=== PATIENT | female | born 1960 | race Asian ===

== ENCOUNTER → 2021-12-03 13:28 | Outpatient (CLI) | payer OTHER, MEDICAID, SELFPAY ==
--- NOTE | 2021-12-03 | DI.ECHO.S_ITS ---
[place] [facility] +---------+ [facility] +---------+ : : [address] [place] : : : : [id number] : : : : Phone: [phone] +---------+ Echocardiogram Report + + :Name: OPAL AREVALO Study Date: 12/03/2021 Height: 58 in : :[facility] ReadingLocation: Weight: 138 lb : : Gender: Female BSA: 1.6 m2 : :: 1960 Age: 61 yrs BP: 166/87 mmHg: :Reason For Study: Murmur : :Ordering Physician: VIVIAN, : :OVIDIO Performed By: Daron Hodgson : :Referring: OVIDIO PARK : + + Interpretation Summary The ejection fraction is estimated to be 60-65%. There is no significant valvular heart disease. Procedure: A two-dimensional transthoracic echocardiogram with color flow and Doppler was performed. The study quality was technically adequate. There is no prior echocardiogram noted for this patient. Left Ventricle: The left ventricle is normal in size and wall thickness. Left ventricular systolic function is normal. The ejection fraction is estimated to be 60-65%. There are no focal wall motion abnormalities. Diastolic parameters suggest probable normal left ventricular diastolic function and normal filling pressures. Right Ventricle: The right ventricle is normal in size and function. Atria: Both atria are normal in size. The interatrial septum grossly appears intact with no obvious evidence for an atrial septal defect. Mitral Valve: The mitral valve is normal in structure and function. There is trace mitral regurgitation. Aortic Valve: The aortic valve is normal in structure and function. No aortic regurgitation is present. Tricuspid Valve: The tricuspid valve is normal in structure and function. No tricuspid regurgitation. Pulmonary artery pressures cannot be estimated because of the lack of a measurable TR jet velocity. Pulmonic Valve: The pulmonic valve is not well seen, but is grossly normal. There is no pulmonic valvular regurgitation. Great Vessels: The aortic root is normal size. The dimensions of the ascending aorta are normal. The IVC is of normal diameter and collapses greater than 50% with a sniff. This suggests a low right atrial pressure of 3 mm Hg. Pericardium/ Pleura There is no pericardial effusion. There is no pleural effusion. MMode/2D Measurements & Calculations LVIDd: 4.7 cm LVOT diam: 1.8 cm LVIDs: 3.2 cm Ao root diam: 2.5 cm FS: 31.9 % asc Aorta Diam: 3.0 cm IVSd: 0.90 cm LVPWd: 0.90 cm LV herrera. diameter/BSA (cm/m^2): 3.0 LV sys. diameter/BSA (cm/m^2): 2.1 LA dimension: 3.0 cm RA long axis: 4.1 cm LA A2 area: 13.9 cm2 LA A4 area: 15.7 cm2 LA length (vol): 4.4 cm LA vol: 42.0 ml LA vol index: 27.0 ml/m2 TAPSE_phl: 2.7 cm Doppler Measurements & Calculations Ao V2 max: 151.0 cm/sec LVOT Max Magdaleno: 120.0 cm/sec Ao V2 mean: 98.9 cm/sec LV V1 max P.8 mmHg Ao max P.0 mmHg LV V1 VTI: 26.9 cm Ao mean P.0 mmHg BETTE(I,D): 2.2 cm2 Ao V2 VTI: 31.5 cm BETTE(V,D): 2.0 cm2 sev ratio: 0.85 BETTE indexed to BSA (cm^2/m^2): 1.4 MV E max magdaleno: 87.4 cm/sec SV(LVOT): 68.5 ml MV A max magdaleno: 90.8 cm/sec MV E/A: 0.96 Med Peak E' Magdaleno: 9.7 cm/sec E/E' med: 9.0 Lat Peak E' Magdaleno: 10.4 cm/sec E/E' lat: 8.4 E/e' average: 8.7 MV dec time: 0.25 sec AV VR_phl: 0.79 MV P1/2t-pr_phl: 74.0 msec BETTE(VTI)/BSA_phl: 1.4 Reading Physician:03:12 PM
== END ==
PROVIDERS: Family Provider Physician Assistant Medical; PCP Physician Assistant Medical; Referring Provider Physician Assistant Medical; Visit Provider Physician Assistant Medical
DX: R01.1 Cardiac murmur, unspecified (principal)
CPT/HCPCS: 93306